=== PATIENT | female | born 1940 | race Caucasian/White ===

== ENCOUNTER → 2023-10-24 | Outpatient (CLI) | payer MEDICARE ==
--- NOTE | 2023-10-26 14:10 | CT ---
EXAMINATION TYPE: CT left knee - ASHLEY Protocol CT DLP: 488 mGycm, Automated exposure control for dose reduction was used. DATE OF EXAM: 10/24/2023 12:14 PM COMPARISON: . Extremity radiograph same day. CLINICAL INDICATION:Female, 83 years old with history of M17.12 UNILATERAL PRIMARY OSTEOARTHRITIS, LE FT KNE M25.562; [facility], left knee ashley protocol. TECHNIQUE: Axial images were obtained of the CT left knee - ASHLEY Protocol, Additional coronal and sag ittal reformatted images and soft tissue and bone window were obtained for review. 3-D reconstruction was created on a separate workstation. Contrast used: mL of , (None if empty) Oral contrast used: (None if empty) FINDINGS: There is no evidence of fracture, subluxation, or dislocation. No significant soft tissue swelling or joint effusion is identified. No focal muscular atrophy or edema is identified. No radiop aque foreign body identified. Moderate osteoarthritic changes in the hips. Severe tricompartmental osteoarthritic change. Prior partially threaded screw fixation of lateral ti bial plateau fracture. No significant osteoarthritis in the ankles. IMPRESSION: No evidence of acute fracture.
== END | disposition home or self-care (01) ==
LOC: RADCTMAIN 11:41
PROVIDERS: ATTEND Orthopaedic Surgery
DX: Z01.818 Encounter for other preprocedural examination (principal); M17.0 Bilateral primary osteoarthritis of knee; M21.061 Valgus deformity, not elsewhere classified, right knee; M21.062 Valgus deformity, not elsewhere classified, left knee; M25.362 Other instability, left knee

== ENCOUNTER → 2023-11-02 | Outpatient (CLI) | payer MEDICARE ==
[2023-11-02 12:49] LABS: Partial Thromboplastin Time 32.8 sec (22.0-30.0); Prothrombin Time 10.5 sec (10.0-12.5)
[2023-11-02 17:01] LABS: HCT 45.6 % (37.2-46.3); HGB 14.8 g/dL (12.0-15.0); MCH 31.6 pg (27.0-32.0); MCHC 32.5 g/dL (32.0-37.0); MCV 97.2 FL (80.0-97.0); Mean Platelet Volume 10.4 FL (9.5-12.2); NRBC Per 100 WBC 0 X 10*3/uL (0.00-0.01); Platelet Count 327 X 10*3/uL (140-440); RBC 4.69 X 10*6/uL (4.10-5.20); RDW 13.8 % (11.5-14.5); WBC 8.29 X 10*3/uL (4.50-10.00)
[2023-11-02 17:02] LABS: ALT 17 U/L (8-44); AST 19 U/L (13-35); Albumin 4.6 g/dL (3.8-4.9); Alkaline Phosphatase 94 U/L (41-126); Blood Urea Nitrogen 19.6 mg/dL (9.0-27.0); Chloride 106 mmol/L (96-109); Globulin 2.3 g/dL (1.6-3.3); Glucose 100 mg/dL (70-110); Potassium 4.2 mmol/L (3.5-5.5); Sodium 143 mmol/L (135-145); Total Bilirubin 0.5 mg/dL (0.3-1.2); Total Protein 6.9 g/dL (6.2-8.2)
== END | disposition home or self-care (01) ==
LOC: LABPAT 11:35
PROVIDERS: ATTEND Orthopaedic Surgery
DX: Z01.812 Encounter for preprocedural laboratory examination (principal); E11.9 Type 2 diabetes mellitus without complications; M17.12 Unilateral primary osteoarthritis, left knee; Z22.322 Carrier or suspected carrier of Methicillin resistant Staphylococcus aureus
CPT/HCPCS: 80053; 83036; 85027; 85610; 85730; 87070

== ENCOUNTER 2023-11-09 08:14 | Day surgery (SDC) | payer MEDICARE ==
[~2023-11-09 08:14] MED LIST: HYDROmorphone 0.5 MG/0.5 ML SYRINGE IVP PRN; MIDAZOLAM 2 MG/2 ML VIAL IV PRN; ONDANSETRON 4 MG/2 ML VIAL IVP PRN; TRANEXAMIC 1,000 MG/100ML-NACL 1,000 MG in SALINE 1 100ML.BAG IV PRN; TRANEXAMIC 1,000 MG/100ML-NACL 1,000 MG in SALINE 1 100ML.BAG IVPB PRN
[2023-11-09] MEDS: IV FLUID CONTINUATION 1,000 ML IV ONE (08:52)
[2023-11-09] MEDS: DEXAMETHASONE SOD PHOSPHATE 10 MG/ML 1 ML VIAL IV PRN (09:05)
[2023-11-09] MEDS: FAMOTIDINE 20 MG/2 ML VIAL IVP PRN (09:05)
[2023-11-09] MEDS: ACETAMINOPHEN TAB 500 MG TAB PO PRN (09:06)
[2023-11-09] MEDS: KETOROLAC 15 MG/ML 1 ML VIAL IVP PRN (09:06)
[2023-11-09] MEDS: DOCUSATE 100 MG CAP PO PRN (09:06)
[2023-11-09] MEDS: oxyCODONE ER 10 MG TAB.ER.12H PO PRN (09:06)
[2023-11-09] MEDS: MIDAZOLAM 2 MG/2 ML VIAL IVP ONE (09:10)
[2023-11-09] MEDS: fentaNYL (PF) 50 MCG/ML 2 ML AMP IVP ONE (09:10)
--- NOTE | 2023-11-09 09:24 | P.ANPRN ---
Procedure Note - Anesthesia - Nerve Block Performed Left Adductor Canal Single Time Out Performed: Yes Date of Procedure: 11/09/23 Procedure Start Time: 09:09 Procedure Stop Time: 09:14 Location of Patient: PreOp Indication: Acute Post-Operative Pain, Requested by Surgeon Specifically requested for management of pain by : Scott Mars Sedation Type: Sedate with meaningful contact maintained Preparation: Sterile Prep, Sterile Dressing Position: Supine Catheter: None Needle Types: Facet Needle Gauge: 20 Ultrasound used to visualize needle placement: Yes Ultrasound used to observe medication spread: Yes Injectate: 0.5% Ropivacaine (see comment for volume) (20 ml + decadron 2 mg) Blood Aspirated: No Pain Paresthesia on Injection Noted: No Resistance on Injection: Normal Image Stored and Saved: Yes Events: Uneventful and Well Tolerated Left iPack Single Time Out Performed: Yes Date of Procedure: 11/09/23 Procedure Start Time: 09:15 Procedure Stop Time: 09:20 Location of Patient: PreOp Indication: Acute Post-Operative Pain, Requested by Surgeon Sedation Type: Sedate with meaningful contact maintained Preparation: Sterile Prep, Sterile Dressing Position: Supine Catheter: None Needle Types: Facet Needle Gauge: 20 Ultrasound used to visualize needle placement: Yes Ultrasound used to observe medication spread: Yes Injectate: 0.5% Ropivacaine (see comment for volume) (10 ml + decadron 2 mg) Blood Aspirated: No Pain Paresthesia on Injection Noted: No Resistance on Injection: Normal Image Stored and Saved: Yes Events: Uneventful and Well Tolerated
[2023-11-09] MEDS: LACTATED RINGERS 1,000 ML IV SCH (09:26)
[2023-11-09] MEDS ORDERED: HYDROmorphone (PF) 1 MG/ML ONE (11:03)
[2023-11-09] MEDS ORDERED: ROPIVACAINE 5 MG/ML 30 ML VIAL ONE (11:03)
[2023-11-09] MEDS ORDERED: LIDOCAINE 1% INJ 10MG/ML (20 ML MDV) ONE (11:03)
[2023-11-09] MEDS ORDERED: DEXAMETHASONE SOD PHOSPHATE 4 MG/ML 1 ML VIAL ONE (11:03)
[2023-11-09] MEDS ORDERED: PHENYLEPHRINE 10 MG/ML VIAL ONE (11:03)
[2023-11-09] MEDS ORDERED: SUCCINYLCHOLINE CHLORIDE 200 MG/10 ML VIAL IV ONE (11:03)
[2023-11-09] MEDS ORDERED: TRANEXAMIC 1,000 MG/100ML-NACL PREMIX BAG ONE (11:03)
[2023-11-09] MEDS ORDERED: fentaNYL (PF) 50 MCG/ML 2 ML AMP ONE (11:03)
[2023-11-09] MEDS ORDERED: NEOSTIGMINE 1 MG/ML 10 ML VIAL ONE (11:03)
[2023-11-09] MEDS ORDERED: ROCURONIUM 10 MG/ML (5 ML VIAL) IV ONE (11:03)
[2023-11-09] MEDS ORDERED: PROPOFOL 10 MG/ML 20 ML VIAL IV ONE (11:03)
[2023-11-09] MEDS ORDERED: KETAMINE HCL IN 0.9 % NACL 50 MG/5 ML SYRINGE ONE (11:03)
[2023-11-09] MEDS ORDERED: GLYCOPYRROLATE 0.2 MG/ML 2 ML VIAL ONE (11:03)
[2023-11-09] MEDS: ROPIVACAINE/EPI/CLONIDINE/KET 50 ML SYRINGE MISCELLANE PRN (11:56)
[2023-11-09] MEDS: LACTATED RINGERS 1,000 ML IV ONE (14:22)
--- NOTE | 2023-11-09 14:38 | P.OP ---
Date of Procedure: 11/09/23 Preoperative Diagnosis: 1. Severe left valgus knee arthritis 2. Prior tibial plateau fracture, left Postoperative Diagnosis: same Procedure(s) Performed: 1. Left total knee arthroplasty 2. Computer assisted musculoskeletal navigation using CT/MRI images Modifier 22 for increased procedural complexity: Justification: This operation required significantly more time, work, and procedural complexity than a standard primary or revision total joint arthroplasty. Specifically the prior traumatic changes and or surgical procedure left a significantly altered surgical field with resultant scar tissue, adhesions, and altered anatomy that required a longer and more difficult and complex surgical dissection. This patient required: Extensile exposure requiring meticulous and extensive debridement due to prior failed surgery and contractures Technically demanding removal of prior hardware Significantly prolonged operative time All of the above result in a physically and mentally challenging operative procedure that in my professional opinion necessitates a 30% increase above standard the schedule Implants: 1. [employer] PS Femur Size #4 2. [employer] [place] Tibial Base Size #3 with [id number] cemented stem 3. [employer] TS poly Size #3, 13-mm 4. [employer] all poly patella, Size #29 [facility] Surgeon: Scott Mars Leather Repairer #1: Ferdinand Joyner Estimated Blood Loss (ml): 200 IV fluids (ml): 1,200 Pathology: none sent Condition: stable Disposition: PACU Indications for Procedure: The patient is a very pleasant 83-year-old female with a medical history significant for having had a prior tibial plateau fracture status post open reduction and internal fixation. She went on to develop severe valgus knee arthritis with significant deformity of her knee. There was a single screw remaining in the proximal tibia. She had failed a long course of nonsurgical treatment and requested proceeding with surgery. We discussed the technical difficulties in both removing the prior hardware and and correcting the valgus deformity. 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 The patient voiced her understanding of these potential complications. I met with the patient preoperatively in the office setting and discussed tr eatment of their symptomatic knee arthritis. They failed a long course of nonsurgical treatment and elected to proceed with an elective total knee replacement. I discussed the potential risks and complications at length and gave them ample time to ask questions. Risks discussed included: risks from anesthesia, superficial site surgical infection, acute and/or chronic periprosthetic joint infection, delayed wound healing, drainage, wound necrosis, instability, stiffness, stiffness requiring manipulation and/or revision surgery, damage to local blood vessels or nerves, aseptic loosening of the implants, extensor mechanism issues including disruption, patellar maltracking, avascular necrosis etc., continued or worsened knee pain, generalized dissatisfaction with surgical outcome, need for revision surgery, an inability to regain preinjury level of function, DVT, PE, other medical complications, and possibly loss of life or limb. The patient voiced their understanding that while these are the most common complications other less common complications are possible. They provided both their verbal and written consent to go forward with surgery. Operative Findings: After registering the knee with a [employer] robotic system the patient had 16 of valgus and a 12 flexion contracture. there was a single 6.5 mm cannulated screw in the proximal tibia that was completely encased in bone which required significant operative time and meticulous care and removing. The patient also had significant soft tissue contractures laterally that required extended surgical time to release and balanced the knee. Description of Procedure: The patient was identified in preoperative holding and the correct operative extremity was verified and marked with a marker. I reviewed the consent form with the patient at length. All of their questions were answered. The patient was given a block by anesthesia. They were then brought back to the operating room. They were transferred onto the operating room table where a general anesthetic, preoperative antibiotics, and tranexamic acid were administered by anesthesia. A tourniquet was applied to the proximal aspect of the operative extremity. The contralateral extremity was padded under the heel and secured to the operating room table with a nonsterile blue towel and tape. The ipsilateral arm was carefully draped across the patient's chest and secured with a pillow and foam. A post was applied over the lateral aspect of the ipsilateral thigh and a bolster was placed under the ipsilateral foot. I verified that the operative extremity was stable and the knee was flexed to 90. The operative extremity was then placed in a leg charlton, nonsterile drapes were applied, and the extremity was prepped and draped sterilely in the standard sterile fashion. Prior to starting surgery timeout was performed identifying the correct patient, operative extremity, and procedure. The leg was then elevated, exsanguinated with an Esmarch bandage, and the tourniquet was inflated. An anterior midline incision was made sharply with a scalpel. Once I had dissected deep to the superficial fascial layer medial and lateral flaps were elevated. A medial parapatellar arthrotomy was created. Upon opening the knee joint there were diffuse arthritic changes in all 3 compartments. The anterior horn of the medial meniscus were sharply released and a medial release was performed around the posterior medial corner of the knee to facilitate retractor placement. The fat pad was excised with electrocautery. The patella was found to be severely arthritic and a provisional cut was made with a sagittal saw to facilitate mobilization of the extensor mechanism during the procedure. Remnants of the ACL and PCL were then excised from the notch. 4 mm pins were then placed within the incision in the medial distal femur and proximal tibia. Arrays were applied to the pins and I verified they were completely tightened. The knee was then registered with the [employer] robot. after head registered the knee with the [employer] robotic system a proximal tibial cut and distal femoral cut were made. The proximal tibial cut was made 1 mm from the retained hardware in the tibia. The Rex system was removed and the bone fragments were removed from the knee. The tibia was gently subluxed anteriorly and I was able to unroof the screw and carefully remove it with minimal bone loss. Due to the circumferential bone around the screw this was exceedingly difficult and took great care to prevent inadvertent bone loss. lamina spreaders were then placed within the knee while in flexion. Contracted tissue laterally was released allowing correction of the deformity. Due to the prior posttraumatic contractur es this took great care an extra surgical time. After the release is performed the knee was straight and I had corrected the valgus to 0. While performing the release an certified pathology assistant placed her hand on the foot to monitor for inadvertent peroneal nerve irritation. At this point the knee was brought into flexion and lamina spreaders were placed medially and laterally to assess the flexion gap. The [employer] robotic system was then utilized to adjust the flexion gap to equal the extension gap.Using the [employer] robotic saw all cuts were made in accordance with our plan. After all bony fragments had been removed the cuts were verified with the planar probe. The tibia was then subluxed forward and sized. The knee was brought into flexion and a lamina supervisor phosphatic fertilizer was placed to allow removal of the meniscal remnants both medially and laterally as well as posterior osteophytes. Local anesthetic was then infiltrated around the joint capsule. Trial implants were then placed within the knee. Range of motion and collateral ligament tension was then evaluated. Adjustments in implant size and position were then made accordingly. Once the knee was felt to be appropriately balanced the Rex pins were removed. The patella was then recut, sized, and punched. A trial patellar button was then placed. With the trial components in place, the patella tracked midline. The femur was then drilled, prepared for a posterior stabilized implant and the trial component removed. The trial tibial component was then appropriately rotated, pinned, and prepared for the keel. we then reamed and drilled for a 100 mm stem. All trial components were then removed from the knee. The knee was thoroughly irrigated with pulsatile lavage. mending was performed in stages. A cement gun was used to pressurize cement into the tibia. The stemmed tibial implant was gently tapped into place and all extra cement was removed. This was allowed to fully set. Cement was then prepared via vacuum mixing in a bowl on the back table. I then hand pressurized cement into the femur and then the femoral component and the patellar button were tapped into place. All extruded cement was removed including from the pin s ites. Once the cement had hardened the knee was evaluated one final time with the trial polyethylene liner in place. The knee had full extension and flexion and felt stable to varus and valgus stress throughout the arc of motion. the final TS poly liner was inserted. The knee once again felt stable throughout the arc of motion.The tourniquet was released and with the tourniquet down the patella tracked midline after a limited outside in lateral release. All bleeders were controlled with electrocautery. The knee was then soaked for 3 minutes with a dilute Betadine soak. The knee was thoroughly irrigated using 3 L of sterile saline and pulsatile lavage. 2 grams of vancomycin powder was placed deep within the knee.The extensor mechanism was then reapproximated using pop off Vicryl sutures followed by a running barbed suture. The knee was then closed in layers with a 0 strata fix for the deep fascial layer, 2-0 strata fix for the superficial subcutaneous layer and Monocryl and Steri-Strips for the skin. A sterile dressing was applied. I verified that all instrument, sponge, and sharp counts were correct. The patient was then transferred off the operating room table, extubated, and brought to recovery having tolerated the procedure well. Ferdinand Joyner PA-C was required as a skilled certified pathology assistant for patient positioning, draping, exposure, retraction, closure of wound and application of dressing PLAN: The patient can weight-bear as tolerated on the operative extremity. DVT prophylaxis with aspirin 81 mg twice a day based on preoperative risk stratification. Internal medicine for perioperative medical management. 2 doses of post-operative antibiotics. Physical therapy for gait training. Follow-up in the office in 2 weeks for wound check and x-rays of the knee including an AP and lateral.
[2023-11-09] MEDS ORDERED: NA PHOS,M-B/NA PHOS,DI-BA 133 ML ENEMA RECTAL PRN (15:01)
[2023-11-09] MEDS ORDERED: bisacodyL 10 MG SUPP RECTAL PRN (15:01)
[2023-11-09] MEDS ORDERED: HYDROmorphone 0.5 MG/0.5 ML SYRINGE IVP PRN ×3 (15:01)
[2023-11-09] MEDS ORDERED: hydrOXYzine pamoate 25 MG CAP PO PRN (15:01)
[2023-11-09] MEDS ORDERED: NALOXONE 0.4 MG/ML 1 ML VIAL IV PRN (15:01)
[2023-11-09] MEDS ORDERED: MAGNESIUM HYDROXIDE 2,400 MG/30 ML CUP PO PRN (15:01)
--- NOTE | 2023-11-09 16:13 | XR ---
EXAMINATION TYPE: XR knee limited LT DATE OF EXAM: 11/09/2023 CLINICAL HISTORY: Postoperative evaluation Two views of the left knee are submitted. Identified are changes of total knee arthroplasty with fem oral and tibial components appearing well seated. Postsurgical soft tissue changes are noted. Align ment is anatomic.
--- NOTE | 2023-11-09 17:23 | P.CONS ---
History of Present Illness - Reason for Consult Consult date: 11/09/23 Medical Management Requesting physician: Scott Mars - History of Present Illness History of Presenting Illness: Patient is a very pleasant 83-year-old female with a past medical history of hypertension and hyperlipidemia. She is currently admitted under orthopedic surgery team status post an elective total left total knee arthroplasty completed by Dr. Mars secondary to severe left valgus knee arthritis. We were consulted for medical management throughout hospitalization. Patient seen and fully evaluated upon arrival to room 472 from postop. She is slightly drowsy but easily awoken via verbal stimuli. Upon assessment patient reports feeling drowsy but denies experiencing any postoperative pain or discomfort, headache, lightheadedness, dizziness, chest pain, palpitations, shortness of breath, nausea, vomiting, or experiencing any numbness/tingling in her extremities. Review of systems: Pertinent positives and negatives as discussed in HPI, a complete review of systems was performed and all other systems are negative. Physical exam: Vital signs reviewed and stable. General: Nontoxic, no distress and appears stated age. Derm: Skin warm and dry, normal coloration for ethnicity. Head: Atraumatic, normocephalic and symmetric. Eyes: EOMs intact, no lid lag, and anicteric sclera Mouth: no lip lesions, mucus membranes moist Cardiovascular: regular rate and rhythm with normal S1S2, systolic murmur, positive posterior tibial pulses bilaterally, and cap refill < 2 seconds. Lungs: Respirations even, regular, and unlabored on room air. Lungs CTA bilaterally, no rhonchi, no rales, no wheezing, and no accessory muscle usage. Abdominal: soft, nontender to palpation, no guarding, no appreciable organomegaly Ext: No gross muscle atrophy, no edema, no contractures. Postoperative dressing and ice pack in place left knee. Neuro: Speech clear, face symmetrical and CN II-XII grossly intact with no noted focal neuro deficits Psych: Alert and oriented to person, place, time, and situation. Appropriate and pleasant affect. Assessment and Plan of Care: Status post left total knee arthroplasty Management per primary admitting orthopedic surgery team including DVT prophylaxis, pain management, wound/dressing management, weightbearing, and PT/OT. Current DVT prophylaxis with aspirin 81 mg twice daily. Postoperative hypoxia Patient currently requiring supplemental oxygen of 3 L with SpO2 of 91%. Patient remains slightly drowsy status post anesthesia from surgical procedure. Patient to be provided with supplemental oxygen and once more awake will again encourage and reinforce use of incentive spirometry. Patient placed on telemetry monitoring for continued close monitoring during postoperative period. Hypertension Continue daily medication regimen with lisinoprilhydrochlorothiazide 10-12.5 mg tablets daily. Hyperlipidemia Continue daily medication regimen with pravastatin 20 mg nightly. Data and imaging reviewed: Reviewed operative report. Preoperative labs completed 11/02/2023 reviewed. CBC showing normal WBC count of 8.29, hemoglobin of 14.8, platelet count of 327. Coagulation profile showing elevated PTT of 32.8 seconds otherwise normal findings. BMP revealed hypocarbia with bicarb of 21 and elevated anion gap of 16. Liver profile was unremarkable. Hemoglobin A1c is 5.3%. Vital signs reviewed. Blood pressure 119/59, heart rate 62, respiratory rate 16, temp 98.6 F, SpO2 of 91% on 3 L. Thank you for allowing us to participate in the care of this pleasant patient. Do not hesitate to contact us with questions. Someone can be reached from the [facility] hospitalist group all hours of the day at [phone] or via [employer]. Patient was seen independently by Nurse Practitioner. This document was prepared using [employer] dictation software. Please allow for errors in orthodontic lab technician while rare they do occur. Past Medical History Past Medical History: Hyperlipidemia, Hypertension, Osteoarthritis (OA) Additional Past Medical History / Comment(s): told had heart murmur-doesn't require tx. History of Any Multi-Drug Resistant Organisms: None Reported Past Surgical History: Orthopedic Surgery, Tubal Ligation Additional Past Surgical History / Comment(s): left knee surg. in late after horse stomped on it, right foot surg. 3 months ago Past Anesthesia/Blood Transfusion Reactions: No Reported Reaction Smoking Status: Never smoker - Past Family History Mother Family Medical History: No Reported History Medications and Allergies Home Medications Medication Instructions Recorded Confirmed Type Acetaminophen [Tylenol Extra 500 mg PO DIRECTED PRN 11/07/23 11/09/23 History Strength] Cholecalciferol [Vitamin D3 (25 25 mcg PO DAILY 11/07/23 11/07/23 History Mcg = 1000 Iu)] Coffee Xt/Phosphatidyl Serine 1 each PO DAILY 11/07/23 11/09/23 History [Neuriva Original 100-100Mg Cap] Lisinopril-Hctz 10-12.5 mg 1 tab PO DAILY 11/07/23 11/09/23 History [Zestoretic 10-12.5] Methenamine/Sodium Salicylate [Azo 1 each PO DAILY 11/07/23 11/09/23 History Urinary Tract Defense Tab] Naproxen Sodium [Aleve] 220 mg PO BID PRN 11/07/23 11/09/23 History Pravastatin Sodium [Pravachol] 20 mg PO HS 11/07/23 11/09/23 History Vitamin C/Biotin [Hair, Skin and 1 tab PO DAILY 11/07/23 11/09/23 History Nails Chew] Vits A,C,E/Lutein/Minerals 1 each PO DAILY 11/07/23 11/09/23 History [Ocuvite with Lutein Tablet] Allergies Allergy/AdvReac Type Severity Reaction Status Date / Time No Known Allergies Allergy Verified 11/09/23 08:50 Physical Exam Vitals: Vital Signs Temp Pulse Pulse Resp BP BP Pulse Ox 11/09/23 16:45 62 16 119/59 91 L 11/09/23 16:30 66 16 116/57 97 11/09/23 16:15 67 16 93/51 94 L 11/09/23 16:00 94 16 125/58 96 11/09/23 15:43 91 16 123/62 97 11/09/23 15:28 80 16 133/59 93 L 11/09/23 15:13 82 16 127/57 95 11/09/23 14:58 98.6 F 106 H 16 133/62 98 11/09/23 09:35 67 16 98 11/09/23 09:23 70 15 157/72 99 11/09/23 08:54 97.3 F L 82 16 193/84 97 Intake and Output 11/09/23 11/09/23 11/09/23 06:59 14:59 22:59 Intake Total 1150 550 Output Total 100 Balance 1050 550 Intake: IV 1150 550 Output: Estimated Blood Loss 100 Other: Weight 61.6 kg
[2023-11-09] MEDS: SODIUM CHLORIDE 0.9% 1,000 ML IV SCH (17:40)
[2023-11-09] MEDS ORDERED: ONDANSETRON 4 MG/2 ML VIAL IVP PRN (18:18)
[2023-11-09] MEDS: PRAVASTATIN SODIUM 20 MG TAB PO SCH (19:59)
[2023-11-09] MEDS: ASPIRIN 81 MG PO SCH (19:59)
[2023-11-09] MEDS: SENNOSIDES-DOCUSATE SODIUM 1 EACH TAB PO SCH (19:59)
[2023-11-09] MEDS: HYDROcodone/APAP 10-325MG 1 EACH TAB PO PRN (22:32)
[2023-11-10 06:16] LABS: African American GFR (CKD) 72 (>60 ml/min/1.73 sqM); Anion Gap 6 mmol/L; Blood Urea Nitrogen 28 mg/dL (7-17); Carbon Dioxide 23 mmol/L (22-30); Chloride 105 mmol/L (98-107); Glucose 122 mg/dL (74-99); Potassium 4.6 mmol/L (3.5-5.1); Sodium 134 mmol/L (137-145)
[2023-11-10 06:17] LABS: Calcium 8.3 mg/dL (8.4-10.2); Magnesium 1.8 mg/dL (1.6-2.3); Non-African American GFR(CKD) 62 (>60 ml/min/1.73 sqM)
[2023-11-10] MEDS: VIT A,C & E-LUTEIN-MINERALS 1 EACH TAB PO SCH (07:58)
[2023-11-10] MEDS: CHOLECALCIFEROL 25 MCG (1000 IU) TABLET PO SCH (07:58)
[2023-11-10] MEDS: LISINOPRIL-HCTZ 10-12.5 MG 1 EACH TAB PO SCH (07:58)
[2023-11-10] MEDS: HYDROcodone/APAP 5-325MG 1 EACH TAB PO PRN (08:06)
[2023-11-10 08:30] VITALS: BP 137/59; PULSE 89; RESP 20; TEMP 97.6
--- NOTE | 2023-11-10 08:30 | P.PN ---
Subjective Progress Note Date: 11/10/23 Patient is doing well this morning. Her pain is relatively well controlled. She has been up to the bathroom with a walker but has not yet been up with physical therapy. She denies chest pain or shortness of breath. Objective - Vital Signs Vital signs: Vital Signs Temp 97.9 F 11/10/23 02:00 Pulse 66 11/10/23 02:00 Resp 16 11/10/23 02:00 BP 124/69 11/10/23 02:00 Pulse Ox 95 11/10/23 02:00 FiO2 Intake & Output 11/09/23 11/10/23 11/10/23 18:59 06:59 18:59 Intake Total 1750 Output Total 100 Balance 1650 Weight 61.6 kg 61.6 kg Intake: IV 1700 Intake, IV Titration 50 Amount ceFAZolin 2 gm In Sodium 50 Chloride 0.9% 50 ml @ 100 mls/hr IVPB Q8H KRISTOPHER Rx#: [id number] Output: Estimated Blood Loss 100 Other: Voiding Method Toilet # Voids 3 - Exam Patient is sitting up at bedside. She is alert and able to answer questions. A focused exam of the left leg was conducted. On inspection there is no intact dressing with no drainage or strike through. There is moderate swelling throughout the leg and mild ecchymosis around the knee. She is able to actively extend the knee. She is able to actively dorsiflex her ankle and her toes and peroneal nerve function is intact. The foot is warm and well perfused with brisk capillary refill. - Labs CBC & Chem 7: 11/10/23 03:50 Labs: Abnormal Lab Results - Last 24 Hours (Table) 11/10/23 Range/Units 03:50 Sodium 134 L (137-145) mmol/L BUN 28 H (7-17) mg/dL Glucose 122 H (74-99) mg/dL Calcium 8.3 L (8.4-10.2) mg/dL Assessment and Plan Assessment: Postoperative day #1 status post left complex total knee replacement for severe valgus deformity, 16 Plan: 1. Weightbearing as tolerated on the operative extremity. Up with assistance. 2. DVT prophylaxis with aspirin 81 mg twice a day 3. Physical therapy for gait training and mobilization 4. Internal medicine for perioperative medical management 5. PT for gait training 6. Disposition: Awaiting evaluation by physical therapy for discharge recommendations. The patient passes physical therapy and is comfortable she can discharge home later today. If she needs to stay an additional day for pain control and therapy or if she would be better treated with discharged to rehab we will make arrangements.
[2023-11-10] MEDS ORDERED: [UNRECOGNIZED DRUG - OTHER] PO SCH (09:00)
[2023-11-10] MEDS ORDERED: METHENAMINE PO SCH (09:00)
[2023-11-10 09:44] LABS: Basophils # (A) 0.03 X 10*3/uL (0.00-0.10); Basophils % (A) 0.2 %; Eosinophils # (A) 0 X 10*3/uL (0.04-0.35); Eosinophils % (A) 0 %; HGB 11.9 g/dL (12.0-15.0); Lymphocytes # (A) 1.12 X 10*3/uL (0.90-5.00); Lymphocytes % (A) 7.3 %; MCHC 32.2 g/dL (32.0-37.0); MCV 99.5 FL (80.0-97.0); Mean Platelet Volume 10.1 FL (9.5-12.2); Monocytes # (A) 1.42 X 10*3/uL (0.20-1.00); Monocytes % (A) 9.2 %; NRBC Per 100 WBC 0 X 10*3/uL (0.00-0.01); Neutrophils # (A) 12.78 X 10*3/uL (1.80-7.70); Neutrophils % (A) 82.8 %; Platelet Count 285 X 10*3/uL (140-440); RBC 3.72 X 10*6/uL (4.10-5.20); RDW 14.4 % (11.5-14.5); WBC 15.42 X 10*3/uL (4.50-10.00)
--- NOTE | 2023-11-10 10:25 | P.DS ---
Providers Date of admission: Sunday11/09/2023 Attending physician: Scott Mars Consults: 11/09/23 15:14 Consult Physician Routine Consulting Provider: Brittney Larsen Consult Reason/Comments: post op medical management Do you want consulting provider notified?: Yes Primary care physician: Stated None Hospital Course: The patient is an 83 year old female who was admitted yesterday under my care and underwent a left total knee replacement. She was admitted under my care. She had 2 doses of post op antibiotics and was transitioned from IV to PO pain meds. She was doing well on POD#1. Her peroneal nerve function was intact and we discussed risk of developing peroneal nerve dysfunction after correction of a severe valgus deformity. She worked with PT and was cleared for d/c home. IM managed her perioperative medical issues. Patient Condition at Discharge: Good Plan - Discharge Summary Discharge Rx Participant: No New Discharge Prescriptions: New Aspirin 81 mg PO BID #60 tab Docusate [Colace] 100 mg PO BID #60 capsule Diclofenac Sodium [Voltaren] 75 mg PO BID #60 tab HYDROcodone/APAP 5-325MG [D[place]den 5-325] 1 - 2 tab PO Q6HR PRN #32 tab PRN Reason: Pain Omeprazole 40 mg PO DAILY #30 cap No Action Vitamin C/Biotin [Hair, Skin and Nails Chew] 1 tab PO DAILY Pravastatin Sodium [Pravachol] 20 mg PO HS Cholecalciferol [Vitamin D3 (25 Mcg = 1000 Iu)] 25 mcg PO DAILY Naproxen Sodium [Aleve] 220 mg PO BID PRN PRN Reason: Pain Lisinopril-Hctz 10-12.5 mg [Zestoretic 10-12.5] 1 tab PO DAILY Vits A,C,E/Lutein/Minerals [Ocuvite with Lutein Tablet] 1 each PO DAILY Methenamine/Sodium Salicylate [Azo Urinary Tract Defense Tab] 1 each PO DAILY Coffee Xt/Phosphatidyl Serine [Neuriva Original 100-100Mg Cap] 1 each PO DAILY Acetaminophen [Tylenol Extra Strength] 500 mg PO DIRECTED PRN PRN Reason: Pain Discharge Medication List Acetaminophen [Tylenol Extra Strength] 500 mg PO DIRECTED PRN 11/07/23 [History] Cholecalciferol [Vitamin D3 (25 Mcg = 1000 Iu)] 25 mcg PO DAILY 11/07/23 [Hi story] Coffee Xt/Phosphatidyl Serine [Neuriva Original 100-100Mg Cap] 1 each PO DAILY 11/07/23 [History] Lisinopril-Hctz 10-12.5 mg [Zestoretic 10-12.5] 1 tab PO DAILY 11/07/23 [History] Methenamine/Sodium Salicylate [Azo Urinary Tract Defense Tab] 1 each PO DAILY 11/07/23 [History] Naproxen Sodium [Aleve] 220 mg PO BID PRN 11/07/23 [History] Pravastatin Sodium [Pravachol] 20 mg PO HS 11/07/23 [History] Vitamin C/Biotin [Hair, Skin and Nails Chew] 1 tab PO DAILY 11/07/23 [History] Vits A,C,E/Lutein/Minerals [Ocuvite with Lutein Tablet] 1 each PO DAILY 11/07/23 [History] Aspirin 81 mg PO BID #60 tab 11/10/23 [Rx] Diclofenac Sodium [Voltaren] 75 mg PO BID #60 tab 11/10/23 [Rx] Docusate [Colace] 100 mg PO BID #60 capsule 11/10/23 [Rx] HYDROcodone/APAP 5-325MG [D[place]den 5-325] 1 - 2 tab PO Q6HR PRN #32 tab 11/10/23 [Rx] Omeprazole 40 mg PO DAILY #30 cap 11/10/23 [Rx] Follow up Appointment(s)/Referral(s): Benjie Jackson MD [REFERRING] - 1-2 Days (Will need to call and schedule appointment prior to discharge to establish care) Scott Mars MD [Medical Doctor] - 2 Weeks Activity/Diet/Wound Care/Special Instructions: 1. Weight-bear as tolerated on your operative extremity unless instructed otherwise. Use a walker or other assistive device to ambulate. 2. Leave surgical dressing in place. If your dressing becomes saturated with b lood, there is drainage, or the dressing becomes loose please contact the office. 3. It is okay to shower with your surgical dressing, but do not submerge in water (no hot tubs, bath's, swimming etc.) 4. Make sure to take her blood clot prevention medication as prescribed (aspirin, Eliquis, Xarelto, and Plavix are commonly prescribed medications for blood clot prevention) 5. While taking D[place] or Percocet for pain make sure you're taking a stool softener (Colace) and drink lots of water. 6. Keep all follow-up appointments as scheduled. You will usually be seen in 1-2 weeks following surgery. 7. Please contact the office with any questions or concerns [phone] Discharge Disposition: HOME WITH HOME HEALTH SERVICES
--- NOTE | 2023-11-10 12:12 | P.PN ---
Progress Note - Text Progress Note Date: 11/10/23 Patient will require a walker at discharge for use at home. Patient underwent left total knee arthroplasty on 11/09/[address] Mars and requires the use of a walker for limited mobility and stability during the postoperative period. Patient has been instructed on how to use a walker and is able to utilize one in her home.
--- NOTE | 2023-11-10 13:46 | P.PN ---
Subjective Progress Note Date: 11/10/23 Hospital Course: Patient is a very pleasant 83-year-old female with a past medical history of hypertension and hyperlipidemia. She is currently admitted under orthopedic surgery team status post an elective total left total knee arthroplasty completed by Dr. Mars secondary to severe left valgus knee arthritis. We were consulted for medical management throughout hospitalization. Physical exam: Patient was seen and fully evaluated at the bedside this morning. She reports doing great this morning and denies having any questions, needs,, or complaints. Patient with moderate swelling to left knee, encouraged the use of ice packs to prevent further swelling. She is medically stable for discharge at this time. Vital signs reviewed and stable. General: Nontoxic, no distress and appears stated age. Derm: Skin warm and dry, normal coloration for ethnicity. Head: Atraumatic, normocephalic and symmetric. Eyes: EOMs intact, no lid lag, and anicteric sclera Mouth: no lip lesions, mucus membranes moist Cardiovascular: regular rate and rhythm with normal S1S2, systolic murmur, positive posterior tibial pulses bilaterally, and cap refill < 2 seconds. Lungs: Respirations even, regular, and unlabored on room air. Lungs CTA bilaterally, no rhonchi, no rales, no wheezing, and no accessory muscle usage. Abdominal: soft, nontender to palpation, no guarding, no appreciable organomegaly Ext: No gross muscle atrophy, no edema, no contractures. Postoperative dressing in place left knee. Neuro: Speech clear, face symmetrical and CN II-XII grossly intact with no noted focal neuro deficits Psych: Alert and oriented to person, place, time, and situation. Appropriate and pleasant affect. Assessment and Plan of Care: Status post left total knee arthroplasty Management per primary admitting orthopedic surgery team including DVT prophylaxis, pain management, wound/dressing management, weightbearing, and PT/OT. Current DVT prophylaxis with aspirin 81 mg twice daily. Acute postoperative blood loss anemia -Hemoglobin stable at 11.9. This is an expected and stable finding. No need for transfusion or any further interventions at this time. Postoperative hypoxia, resolved Hypertension Continue daily medication regimen with lisinoprilhydrochlorothiazide 10-12.5 mg tablets daily. Hyperlipidemia Continue daily medication regimen with pravastatin 20 mg nightly. Data and imaging reviewed: Postoperative labs reviewed showing acute postoperative blood loss anemia with hemoglobin of 11.9 and mild leukocytosis with WBC count of 15.42. BMP showing sodium 134, BUN 28, and glucose 122. Vital signs reviewed. Blood pressure 119/59, heart rate 62, respiratory rate 16, temp 98.6 F, SpO2 of 91% on 3 L. Patient is cleared from medical perspective for discharge, once cleared by primary admitting orthopedic surgery team. Thank you for allowing us to participate in the care of this pleasant patient. Do not hesitate to contact us with questions. Someone can be reached from the [facility] hospitalist group all hours of the day at [phone] or via [employer]. Patient was seen independently by Nurse Practitioner. This document was prepared using [employer] dictation software. Please allow for errors in permac[employer] contractor while rare they do occur. Omar Allen NP rendered care for this patient independently, reviewed the findings and plan as documented in the note above. I did not physically speak with or examine the patient on this date. Objective - Vital Signs Vital signs: Vital Signs Temp 97.6 F 11/10/23 08:00 Pulse 89 11/10/23 08:00 Resp 20 11/10/23 08:00 BP 137/59 11/10/23 08:00 Pulse Ox 100 11/10/23 08:00 FiO2 Intake & Output 11/09/23 11/10/23 11/10/23 18:59 06:59 18:59 Intake Total 1750 Output Total 100 Balance 1650 Weight 61.6 kg 61.6 kg Intake: IV 1700 Intake, IV Titration 50 Amount ceFAZolin 2 gm In Sodium 50 Chloride 0.9% 50 ml @ 100 mls/hr IVPB Q8H [facility] Rx#: [id number] Output: Estimated Blood Loss 100 Other: Voiding Method Toilet # Voids 3 - Labs CBC & Chem 7: 11/10/23 03:50 11/10/23 03:50 Labs: Abnormal Lab Results - Last 24 Hours (Table) 11/10/23 Range/Units 03:50 Sodium 134 L (137-145) mmol/L BUN 28 H (7-17) mg/dL Glucose 122 H (74-99) mg/dL Calcium 8.3 L (8.4-10.2) mg/dL
== END 2023-11-10 13:34 | disposition home health service (06) ==
LOC: OR 08:14 → 4SSUR 14:55 → OR 11-10 13:34
PROVIDERS: ATTEND Orthopaedic Surgery
DX: M17.12 Unilateral primary osteoarthritis, left knee (principal); D62 Acute posthemorrhagic anemia; E78.5 Hyperlipidemia, unspecified; G89.18 Other acute postprocedural pain; I10 Essential (primary) hypertension; Z79.82 Long term (current) use of aspirin; Z79.899 Other long term (current) drug therapy
CPT/HCPCS: 0055T; 27447; 64447; 64999; 80048; 83735; 85025